=== PATIENT | male | born 1965 | race African-American/Black ===

== ENCOUNTER → 2018-06-05 | Outpatient (CLI) | payer OTHER | END | disposition home or self-care (01) | LOC: RAD 11:07 | DX: M89.38 Hypertrophy of bone, other site (principal); I87.8 Other specified disorders of veins; M47.896 Other spondylosis, lumbar region; M16.0 Bilateral primary osteoarthritis of hip; R05 Cough | CPT/HCPCS: 71046; 72100; 73521 ==

== ENCOUNTER 2020-06-23 08:44 | Emergency (ER) | payer OTHER ==
[~2020-06-23] VITALS: Ht 175.3 cm; Wt 107.7 kg
[~2020-06-23 08:44] MED LIST: AMLO5TAB4 PO; CYCL10TA2 PO; HYDR-2765 PO; IBUP200T58 PO; LISI1TAB37 PO
--- NOTE | 2020-06-23 09:25 | RAD ---
AP Internal and external rotation views with Y-View of the left shoulder were performed. Indication: Fall yesterday now unable to move arm Comparison: None. No obvious fracture or displacement. There is severe degenerative change of the shoulder with large osteophyte formation with a particularly large inferior directed osteophyte of the acromioclavicular joint which likely impinges on the rotator cuff muscular culture. Additionally there appears to be calcific biceps tendinitis at the biceps had origin. There is a large inferior osteophyte correction off of the humeral head. No widening of the shoulder joints. There additionally appears to be a large piece of calcification at the rotator cuff insertion suggesting rotator cuff tendinitis as well. IMPRESSION: 1. Severe degenerative change described above. No acute traumatic fracture. Electronically signed by: Sundeep Manzano MD (06/23/2020 9:22 AM) [id number]
--- NOTE | 2020-06-23 09:55 | PHYS DOC ---
Past Medical History Past Medical History: COPD, Hypertension Additional Past Medical Histor: ALLERGIC RHINITIS Past Surgical History: Hip Replacement Smoking Status: Current Every Day Smoker Alcohol Use: Occasionally General Adult EDM: Chief Complaint: SHOULDER INJURY HPI: HPI: 55-year-old male presenting the emergency department today after falling down the stairs yesterday. He fell down about 10 stairs. He did hit his head but did not lose consciousness. He injured his left shoulder when he fell. He has some shoulder pain that sharp throbbing worse when he abducts his shoulder. It is a sharp shooting pain. It is moderate to severe. He denies any numbness weakness or tingling distally. He denies any other injuries. He denies neck pain chest pain abdominal pain rib pain back pain or any injury to his e xtremities other than his left shoulder. Review of systems is negative for chest pain shortness of breath abdominal pain vision changes numbness weakness or tingling slurred speech difficulty walking or neck pain. All other review of systems negative. ED course: 55-year-old male presenting with left shoulder pain after a fall. Secondary survey shows only the shoulder injury. X-rays show degenerative disease without acute fracture. He does have a significant osteophyte directly where the patient's pain is. Will place the patient in a shoulder sling and refer him to orthopedic surgery and have the patient use ice and rest. We were unable to utilize [place] head CT rules given his fall from greater than [address] obtained which was negative. Heart Score: Risk Factors: Risk Factors: DM, Current or recent (<one month) smoker, HTN, HLP, family history of CAD, obesity. Risk Scores: Score 0 - 3: 2.5% MACE over next 6 weeks - Discharge Home Score 4 - 6: 20.3% MACE over next 6 weeks - Admit for Clinical Observation Score 7 - 10: 72.7% MACE over next 6 weeks - Early Invasive Strategies Allergies: Allergies: Allergies Coded Allergies Type Severity Reaction Last Updated Verified No Known Drug Allergies 03/03/14 No Physical Exam: PE: General Appearance alert, cooperative, no distress, responsive Head Normocephalic, without obvious abnormality, atraumatic. No lacerations abrasions or ecchymosis. Nontender to touch. Eyes conjunctivae/corneas clear. PERRL, EOM's intact. Ears normal external ear canals AU Nose Nares normal. Septum midline. Mucosa normal. No drainage or sinus tenderness. Throat no blood or lacerations, normal alignment Neck supple, symmetrical, trachea midline, cervical collar in place Back/Spine symmetric, normal curvature. ROM normal, no abrasions, no tenderness to palpation, no step-offs Lungs clear to auscultation bilaterally Chest Wall normal ribcage without tenderness to palpation, crepitus or emphysema Heart reg rate and regular rhythm, S1, S2 normal, no murmur, click, rub or gallop Abdomen soft, non-tender. Bowel sounds normal. No masses, no organomegaly Pelvic stable Extremities The patient's left upper extremity is tender to touch at the top of his shoulder. He is nontender along clavicle. No pain along the scapula. Nontender at the elbow. He has some pain with passive range of motion of the shoulder. Normal motor and sensory function of the hand with a palpable pulse and 2-second cap refill. Right upper extremity and both extremities bilaterally are nontender at the joints with normal range of motion of the joints. Palpable pulse with 2-second cap refill. Pulses 2+ and symmetric Skin Skin color, texture, turgor normal. No rashes or lesions Neurologic Grossly normal Eye opening: (4) spontaneous Best motor response: (6) obeys verbal command Best verbal response: (5) oriented and converses Total Chapo (E + M + V) = 15 Current Patient Data: Vital Signs: Vital Signs Date Time Temp Pulse Resp B/P (MAP) Pulse Ox O2 Delivery O2 Flow Rate FiO2 06/23/20 08:49 98.6 65 16 151/84 (106) 98 Room Air 98.6 EKG: EKG: [] Radiology/Procedures: Radiology/Procedures: [] Course & Med Decision Making: Course & Med Decision Making Pertinent Labs and Imaging studies reviewed. (See chart for details) [] Dragon Disclaimer: Dragon Disclaimer: This electronic medical record was generated, in whole or in part, using a voice recognition dictation system. Departure Departure Impression: Primary Impression: Fall Additional Impressions: Injury of left shoulder Head injury Disposition: HOME, SELF-CARE Condition: STABLE Referrals: ALINE EASON MD (PCP) THERON RILEY II, MD in 2 days. Patient Instructions: Head Injury, Adult, Shoulder Pain Justicifation of Admission Dx: Justifications for Admission: Justification of Admission Dx: N/A DASIA RODARTE MD Jun 23, 2020 09:55
--- NOTE | 2020-06-23 10:30 | RAD ---
CT HEAD WO CONTRAST Date: 06/23/2020 9:51 AM Clinical Indication: head injury Comparison: None. Technique: 5 mm axial tomographic images were obtained of the head without contrast. These were viewed on brain and bone windows. One or more of the following dose reduction techniques were utilized: Automated exposure control (AEC), Adjustment of mA and/or kV according to patient size, Use of iterative reconstruction technique such as ASiR, CT scan done according to ALARA and image gently/image wisely Findings: The brain parenchyma is normal in attenuation. No intra- or extra-axial mass or fluid collection. No acute hemorrhage. The ventricles are normal in size, shape, and morphology. The serra-white matter junction is normal. The subarachnoid cisterns are patent. Mild maxillary sinus mucosal thickening. Remote lamina papyracea fractures. The visualized portions of the orbits and globes are normal. The mastoid air cells are clear. The development scientist topogram shows no lytic lesion or fracture. Impression: No acute intracranial process. Electronically signed by: Devan Zuniga MD (06/23/2020 10:26 AM) [id number]
[2020-06-23 11:26] VITALS: BP 146/96
== END 2020-06-23 11:32 | disposition home or self-care (01) ==
LOC: ER 08:44
DX: S09.90XA Unspecified injury of head, initial encounter (principal); S49.92XA Unspecified injury of left shoulder and upper arm, initial encounter; I10 Essential (primary) hypertension; J44.9 Chronic obstructive pulmonary disease, unspecified; F17.200 Nicotine dependence, unspecified, uncomplicated; W10.9XXA Fall (on) (from) unspecified stairs and steps, initial encounter; Y93.89 Activity, other specified; Y92.89 Other specified places as the place of occurrence of the external cause; Y99.8 Other external cause status
CPT/HCPCS: 70450; 73030; 99284; A4565

== ENCOUNTER → 2020-07-07 | Outpatient (CLI) | payer OTHER ==
[2020-06-23 11:26] VITALS: BP 146/96
--- NOTE | 2020-07-07 13:07 | KCIC ---
Examination: MRI of the left shoulder without contrast HISTORY: History of left shoulder pain COMPARISON: None available Technique: Multiplanar, multisequence MR imaging of the left shoulder performed without contrast. FINDINGS: The long head of the biceps tendon within the bicipital groove. The attachment of the long head the biceps tendon to the superior labral anchor grossly appears intact. The attachment of the subscapularis tendon grossly appears intact. There is full-thickness tear of the supraspinatus, infraspinatus tendons identified with tendon retraction up to the level of the glenoid. There is mild superior and posterior translation of the humerus head within the glenoid. The visualized labrum grossly appears unremarkable. There is extension of fluid from the shoulder joint to the subacromial subdeltoid bursa. The acromion is type II. Moderate degenerative changes identified in the acromioclavicular joint, glenohumeral joint. There is obscuration of fat in the rotator interval. IMPRESSION: 1. Full-thickness tear of the supraspinatus, infraspinatus tendon with tendon retraction up to the level of the glenoid. 2. Moderate rotator cuff tendinosis 3. Changes of adhesive capsulitis. Electronically signed by: Gilmer Andrade MD (07/07/2020 1:04 PM) [id number]
== END ==
LOC: KCIC MRI 08:16
PROVIDERS: ATTEND Orthopaedic Surgery
DX: M75.122 Complete rotator cuff tear or rupture of left shoulder, not specified as traumatic (principal); M75.02 Adhesive capsulitis of left shoulder; M77.8 Other enthesopathies, not elsewhere classified
CPT/HCPCS: 73221

== ENCOUNTER 2021-12-20 16:10 | Emergency (ER) | payer OTHER ==
[~2021-12-20] VITALS: Ht 175.3 cm; Wt 110.8 kg
[~2021-12-20 16:10] MED LIST changes: +CYCL10TA19 PO; -CYCL10TA2 PO
[2021-12-20] MEDS ORDERED: fentaNYL PF VIAL 100 MCG/2 ML VIAL IVP ONE (17:00)
[2021-12-20] MEDS ORDERED: IV NORMAL SALINE 1000ML BAG 1,000 ML IV ONE (17:00)
[2021-12-20] MEDS ORDERED: VANCOMYCIN PER PHARMACY MC PRN (17:00)
[2021-12-20] MEDS ORDERED: fentaNYL PF VIAL 100 MCG/2 ML VIAL ONE (17:06)
--- NOTE | 2021-12-20 17:12 | PHYS DOC ---
Past Medical History Past Medical History: COPD, Hypertension Additional Past Medical Histor: ALLERGIC RHINITIS (MAGDA FERRO APRN) Past Surgical History: Hip Replacement (MAGDA FERRO APRN) Smoking Status: Never Smoker Alcohol Use: None (MAGDA FERRO APRN) General Adult EDM: Chief Complaint: LOWER EXT PAIN HPI: HPI: Patient is a 56-year-old male that presents today with left upper thigh/groin pain. Patient states he started having left upper thigh/groin pain yesterday that was also associated with chills, patient states he also noticed that his left lower leg was reddened and a little more swollen than normal and it looks like he had cellulitis again for which she has had in the past. Patient states he does have a past medical history of cellulitis approximately 10 years ago in his lower extremities he has not had any since, patient states that 2 years ago he had bilateral hip replacements done at an outside hospital, and has no had no problems until now. Patient states that yesterday he was having that pain in his upper thigh area, he did stay off work and he says he rested yesterday and today he tried to do a little bit more activity and had increased pain and decided to come to the emergency department after being advised by his primary care physician that he needed evaluation. Patient denies chest pain, shortness of air, and cough. (MAGDA FERRO APRN) Review of Systems: Review of Systems: Constitutional: chills. [] Eyes: Denies change in visual acuity. [] HENT: Denies nasal congestion or sore throat. [] Respiratory: Denies cough or shortness of breath. [] Cardiovascular: Denies chest pain or edema. [] GI: Denies abdominal pain, nausea, vomiting, bloody stools or diarrhea. [] : Denies dysuria. [] Musculoskeletal: Left upper thigh.GROIN PAIN Integument: Denies rash. [] Neurologic: Denies headache, focal weakness or sensory changes. [] Endocrine: Denies polyuria or polydipsia. [] Lymphatic: Denies swollen glands. [] Psychiatric: Denies depression or anxiety. [] (MAGDA FERRO APRN) Heart Score: C/O Chest Pain: N/A Risk Factors: Risk Factors: DM, Current or recent (<one month) smoker, HTN, HLP, family history of CAD, obesity. Risk Scores: Score 0 - 3: 2.5% MACE over next 6 weeks - Discharge Home Score 4 - 6: 20.3% MACE over next 6 weeks - Admit for Clinical Observation Score 7 - 10: 72.7% MACE over next 6 weeks - Early Invasive Strategies (MAGDA FERRO CRATE MAKER) Current Medications: Current Medications Medications (Trade) Dose Ordered Sig/Madalyn Start Time Stop Time Status Last Admin Dose Admin Fentanyl Citrate (Fentanyl 2ml Vial) 50 mcg 1X ONCE 12/20/21 17:00 12/20/21 17:01 UNV Sodium Chloride 1,000 ml @ 999 mls/hr 1X ONCE 12/20/21 17:00 12/20/21 18:00 Vancomycin HCl (Vanco Per Pharmacy) 1 each PRN DAILY PRN 12/20/21 17:00 UNV (MAGDA FERRO CRATE MAKER) Allergies: Allergies: Allergies Coded Allergies Type Severity Reaction Last Updated Verified No Known Drug Allergies 03/03/14 No (MAGDA FERRO CRATE MAKER) Physical Exam: PE: Constitutional: Well developed, well nourished, MILD distress, non-toxic appearance. [] HENT: Normocephalic, atraumatic, bilateral external ears normal, oropharynx moist, no oral exudates, nose normal. [] Eyes: PERRLA, EOMI, conjunctiva normal, no discharge. [] Neck: Normal range of motion, no tenderness, supple, no stridor. [] Cardiovascular:Heart rate regular rhythm, no murmur [] Lungs & Thorax: Bilateral breath sounds clear to auscultation [] Abdomen: Bowel sounds normal, soft, no tenderness, no masses, no pulsatile masses. [] Skin: Left lower leg redness, swelling, and warmth noted, no open wounds noted no drainage noted Back: No tenderness, no CVA tenderness. [] Extremities: Left upper thigh near the inner aspect of the thigh near the groin is painful to palpation, no erythema no open wound noted or swelling noted, left lower leg is redness, swelling, and warmth noted no open wounds noted, 2+ pedal pulses less than 2-second cap refill. Patient has normal range of motion, he does have a well-healed scar on the left hip area, no erythema, swelling, or open wound noted. Neurologic: Alert and oriented X 3, normal motor function, normal sensory function, no focal deficits noted. [] Psychologic: Affect normal, judgement normal, mood normal. [] (MAGDA FERRO APRN) Current Patient Data: Labs: Laboratory Tests Test 12/20/21 17:00 12/20/21 17:10 12/20/21 17:35 Urine Collection Type Unknown Urine Color Yellow Urine Clarity Clear Urine pH 7.5 Urine Specific Evans 1.015 Urine Protein >=300 mg/dL Urine Glucose (UA) Negative mg/dL Urine Ketones (Stick) Negative mg/dL Urine Blood Trace Urine Nitrite Negative Urine Bilirubin Negative Urine Urobilinogen Dipstick 1.0 mg/dL Urine Leukocyte Esterase Negative Urine RBC 3-5 /HPF Urine WBC 1-4 /HPF Urine Bacteria 0 /HPF Sodium Level 144 mmol/L Potassium Level 3.7 mmol/L Chloride Level 107 mmol/L Carbon Dioxide Level 27 mmol/L Anion Gap 10 Blood Urea Nitrogen 16 mg/dL Creatinine 0.9 mg/dL Estimated GFR (Cockcroft-Gault) 106.0 BUN/Creatinine Ratio 18 Glucose Level 111 mg/dL Calcium Level 8.4 mg/dL Total Bilirubin 0.2 mg/dL Aspartate Amino Transf (AST/SGOT) 25 U/L Alanine Aminotransferase (ALT/SGPT) 42 U/L Alkaline Phosphatase 62 U/L Total Protein 6.8 g/dL Albumin 3.2 g/dL Albumin/Globulin Ratio 0.9 White Blood Count 8.5 x10^3/uL Red Blood Count 5.08 x10^6/uL Hemoglobin 14.2 g/dL Hematocrit 43.7 % Mean Corpuscular Volume 86 fL Mean Corpuscular Hemoglobin 28 pg Mean Corpuscular Hemoglobin Concent 33 g/dL Red Cell Distribution Width 14.0 % Platelet Count 159 x10^3/uL Neutrophils (%) (Auto) 87 % Lymphocytes (%) (Auto) 7 % Monocytes (%) (Auto) 5 % Eosinophils (%) (Auto) 1 % Basophils (%) (Auto) 0 % Neutrophils # (Auto) 7.4 x10^3/uL Lymphocytes # (Auto) 0.6 x10^3/uL Monocytes # (Auto) 0.5 x10^3/uL Eosinophils # (Auto) 0.0 x10^3/uL Basophils # (Auto) 0.0 x10^3/uL Lactic Acid Level 0.9 mmol/L Current Medications Medications (Trade) Dose Ordered Sig/Madalyn Route PRN Reason Start Time Stop Time Status Last Admin Dose Admin Sodium Chloride 1,000 ml @ 999 mls/hr 1X ONCE IV 12/20/21 17:00 12/20/21 18:00 DC 12/20/21 17:09 Fentanyl Citrate (Fentanyl 2ml Vial) 50 mcg 1X ONCE IVP 12/20/21 17:00 12/20/21 17:07 DC 12/20/21 17:08 Vancomycin HCl (Vanco Per Pharmacy) 1 each PRN DAILY PRN MC SEE COMMENTS 12/20/21 17:00 Vancomycin HCl 2 gm/Sodium Chloride 500 ml @ 250 mls/hr 1X ONCE IV 12/20/21 18:00 12/20/21 19:59 12/20/21 17:50 Fentanyl Citrate (Fentanyl 2ml Vial) 100 mcg STK-MED ONCE .ROUTE 12/20/21 17:06 12/20/21 17:06 DC Vital Signs: Vital Signs Date Time Temp Pulse Resp B/P (MAP) Pulse Ox O2 Delivery O2 Flow Rate FiO2 12/20/21 19:07 116 18 177/93 (121) 99 Room Air 12/20/21 17:48 111 15 173/110 (131) 100 Room Air 12/20/21 17:08 18 98 Room Air 12/20/21 16:46 98.2 100 20 224/112 (149) 97 Room Air 98.2 Vital Signs Date Time Temp Pulse Resp B/P (MAP) Pulse Ox O2 Delivery O2 Flow Rate FiO2 12/20/21 16:46 98.2 100 20 224/112 (149) 97 Room Air 98.2 (MAGDA FERRO APRN) EKG: EKG: [] (MAGDA FERRO CRATE MAKER) Radiology/Procedures: Radiology/Procedures: REASON: UPPER LEG/GROIN PAIN PROCEDURE: VENOUS LOWER EXTREMITY LEFT Left lower extremity venous duplex Doppler ultrasound HISTORY: Left leg pain and groin pain. FINDINGS: DVT on grayscale sonography with compressibility, patent color Doppler flow and augmentation level of the common femoral vein, profunda femoral vein, superficial femoral vein and popliteal vein. Patient color Doppler blood flow without DVT of the posterior tibial and peroneal veins in the calf. Left inguinal adenopathy with a dominant lymph node measuring 3.6 x 1.5 x 3.0 cm with cortical thickening. IMPRESSION: Negative left leg for DVT. Left inguinal adenopathy as described above. Electronically signed by: Merrill Rubalcava MD (12/20/2021 6:54 PM) [facility] [] (MAGDA FERRO APRN) Course & Med Decision Making: Course & Med Decision Making Pertinent Labs and Imaging studies reviewed. (See chart for details) 1929 reviewed radiological and laboratory results did inform the patient that the reason his groin is sore as he has a lymph node that is inflamed and is enlarged, and that is what is causing his pain, I did inform him that we are giving him some IV antibiotics for the cellulitis, we will also treat on an outpatient basis for cellulitis in the left lower leg, I did inform patient that the lymph node in his left groin will need to be evaluated by his primary care physician and further testing will need to be done. I will give a copy of the radiological reports to the patient so that he may take it to his primary care physician. I will also prescribe some outpatient opioid medication to help with pain relief, patient and verbalized understanding of this and are agreeable to the plan of care. (MAGDA FERRO APRN) Course & Med Decision Making I was the Attending physician on the above date of service of this patient. This patient was evaluated, examined, treated, and dispositioned from the emergency department by the mid-level practitioner. I reviewed ER work-up and agreed to plan of care as stated Electronically signed, Salina Martin DO (SALINA MARTIN DO) Valeriano Disclaimer: Valeriano Disclaimer: This electronic medical record was generated, in whole or in part, using a voice recognition dictation system. (MAGDA FERRO APRN) Departure Departure Impression: Primary Impression: Cellulitis Qualified Codes: L03.116 - Cellulitis of left lower limb Additional Impression: Enlarged lymph node Disposition: HOME / SELF CARE / HOMELESS Condition: STABLE Referrals: ALINE EASON MD (PCP) Patient Instructions: Cellulitis Additional Instructions: Augmentin 875 mg take 1 tablet twice daily for 10 days for your cellulitis in your leg Follow-up with your primary care physician for further evaluation of the left groin enlarged lymph node. Return to the emergency department if you develop a fever, swelling in your groin causes numbness tingling or decreased blood flow to your left leg, or any other concern you may have. Scripts Hydrocodone Bit/Acetaminophen (HYDROCODONE-APAP 5-325 ) 1 Tab Tablet 1 TAB PO PRN Q6HRS PRN for PAIN, #20 TAB 0 Refills Prov: MAGDA FERRO APRN 12/20/21 Amoxicillin/Potassium Clav (AMOX TR-K CLV 875-125 MG TAB) 1 Each Tablet 1 TAB PO BID, #20 TAB Prov: MAGDA FERRO APRN 12/20/21 MAGDA EFRRO APRN Dec 20, 2021 17:12 SALINA MARTIN DO Dec 25, 2021 07:31
[2021-12-20 17:17] LABS: BILIRUBIN,URINE NEGATIVE (NEG); CLARITY,URINE CLEAR; COLOR,URINE YELLOW; NITRITE,URINE NEGATIVE (NEG); PH,URINE 7.5 (<5.0-8.0); PROTEIN,URINE >=300 mg/dL (NEG-TRACE)
[2021-12-20 17:26] LABS: BACTERIA,URINE 0 /HPF (0-FEW)
[2021-12-20 17:38] LABS: CALCIUM 8.4 mg/dL (8.5-10.1); CREATININE 0.9 mg/dL (0.7-1.3); POTASSIUM 3.7 mmol/L (3.5-5.1)
[2021-12-20 17:41] LABS: ALBUMIN 3.2 g/dL (3.4-5.0); ALBUMIN/GLOBULIN RATIO 0.9 (1.0-1.7); TOTAL BILIRUBIN 0.2 mg/dL (0.2-1.0); TOTAL PROTEIN 6.8 g/dL (6.4-8.2)
[2021-12-20 17:47] LABS: BASO % 0 % (0-3); EOS % 1 % (0-3); HEMATOCRIT 43.7 % (39.0-53.0); HEMOGLOBIN 14.2 g/dL (13.0-17.5); LYMPH # 0.6 x10^3/uL (1.0-4.8); LYMPH % 7 % (24-48); MEAN CORPUSCULAR HEMOGLOBIN 28 pg (25-35); MEAN CORPUSCULAR HGB CONC 33 g/dL (31-37); MEAN CORPUSCULAR VOLUME 86 fL (79-100); MONO # 0.5 x10^3/uL (0.0-1.1); MONO % 5 % (0-9); NEUT # 7.4 x10^3/uL (1.8-7.7); NEUT % 87 % (31-73); PLATELET COUNT 159 x10^3/uL (140-400); RED BLOOD COUNT 5.08 x10^6/uL (4.30-5.70); WHITE BLOOD COUNT 8.5 x10^3/uL (4.0-11.0)
[2021-12-20] MEDS ORDERED: VANCOMYCIN 2 GM in IV NORMAL SALINE 500ML BAG 500 ML IV ONE (18:00)
--- NOTE | 2021-12-20 18:56 | RAD ---
Left lower extremity venous duplex Doppler ultrasound HISTORY: Left leg pain and groin pain. FINDINGS: DVT on grayscale sonography with compressibility, patent color Doppler flow and augmentatio n level of the common femoral vein, profunda femoral vein, superficial femoral vein and popliteal vei n. Patient color Doppler blood flow without DVT of the posterior tibial and peroneal veins in the mily f. Left inguinal adenopathy with a dominant lymph node measuring 3.6 x 1.5 x 3.0 cm with cortical thi ckening. IMPRESSION: Negative left leg for DVT. Left inguinal adenopathy as described above. Electronically signed by: Merrill Rubalcava MD (12/20/2021 6:54 PM) [facility]
[2021-12-20] MEDS ORDERED: HYDR-2761 PO (19:47)
[2021-12-20] MEDS ORDERED: AMOX1TAB11 PO (19:47)
[2021-12-20 20:32] VITALS: BP 178/80
== END 2021-12-20 20:34 | disposition home or self-care (01) ==
LOC: ER 16:10
DX: L03.116 Cellulitis of left lower limb (principal); R59.9 Enlarged lymph nodes, unspecified; J44.9 Chronic obstructive pulmonary disease, unspecified; I10 Essential (primary) hypertension
CPT/HCPCS: 36415; 80053; 81001; 83605; 85025; 87040; 93971; 96361; 96365; 96375; 99285; J3010; J3370; J7030; J7040